=== PATIENT | male | born 1955 | race Two or more races ===

== ENCOUNTER 2017-05-06 10:01 | Emergency (ER) | payer OTHER ==
[2017-05-06 10:17] VITALS: BP 134/82
--- NOTE | 2017-05-06 10:19 | ER Document Report ---
HPI - HPI Patient complains to provider of: Gout flare Onset: Other - 1 month Quality of pain: Throbbing Pain Level: 4 Context: 61-year-old male with a history of gout has been out of his Uloric which prevented flares. He used to go to [facility] and his doctor changed he does not have a prescription. 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 It is not as bad as it was over . No fever or chills. Associated Symptoms: None Exacerbated by: Movement Relieved by: Denies - ROS ROS below otherwise negative: Yes Systems Reviewed and Negative: Yes All other systems reviewed and negative Past Medical History - General Information source: Patient - Social History Smoking Status: Never Smoker Frequency of alcohol use: None Drug Abuse: None Occupation: food selector Lives with: Family Family History: Reviewed & Not Pertinent - Medical History Notes: gout Musculoskeltal Medical History: Reports Hx Arthritis, Reports Hx Gout Past Surgical History: Reports: Hx Cholecystectomy, Hx Herniorrhaphy - umbilical , Hx Orthopedic Surgery. Denies: Hx Pacemaker - Immunizations Immunizations up to date: Yes Hx Diphtheria, Pertussis, Tetanus Vaccination: Yes Vertical Provider Document - CONSTITUTIONAL Agree With Documented VS: Yes Exam Limitations: No Limitations General Appearance: No Apparent Distress - INFECTION CONTROL TRAVEL OUTSIDE OF THE [place] IN LAST 30 DAYS: No - HEENT HEENT: Normocephalic - RESPIRATORY O2 Sat by Pulse Oximetry: 96 - MUSCULOSKELETAL/EXTREMETIES Musculoskeletal/Extremeties: Tender, Edema - warm bilateral ankle joints, left more than right. Course - Re-evaluation Re-evalutation: 05/06/17 11:27 Uric acid is normal so I will not be prescribing Uloric, he will f/u [facility] - Vital Signs Vital signs: Temp Pulse Resp BP Pulse Ox 98.0 F 64 16 134/82 H 96 05/06/17 10:15 05/06/17 10:15 05/06/17 10:15 05/06/17 10:15 05/06/17 10:15 Discharge - Discharge Clinical Impression: gout bilateral ankles Condition: Good Disposition: HOME, SELF-CARE Instructions: Anti-Inflammatory Medication ([facility]), Gout ([facility]), Gout Diet ([facility]) Additional Instructions: see your doctor at [facility] your uric acid is normal, the Uloric that you have had in the past is to lower the uric acid and yours is normal. to er if worse Prescriptions: Indomethacin [Indocin 50 Mg Capsule] 50 mg PO TIDP PRN #30 capsule PRN Reason: Forms: Return to Work
[2017-05-06] MEDS ORDERED: INDOMETHACIN 50 MG CAPSULE PO ONE (10:33)
== END 2017-05-06 11:47 | disposition home or self-care (01) ==
LOC: ER 10:01
DX: M10.9 Gout, unspecified (principal)
CPT/HCPCS: 99283; 36415; 84550; J3490

== ENCOUNTER 2017-07-01 09:30 | Emergency (ER) | payer OTHER ==
[2017-07-01 09:45] VITALS: BP 139/80
--- NOTE | 2017-07-01 10:14 | ER Document Report ---
HPI - HPI Patient complains to provider of: ankle pain Onset: Other - 4 days Onset/Duration: Persistent Quality of pain: Achy Pain Level: 5 Context: Patient presents complaining of left ankle pain for the past several months that has gradually been worsening over the past month that noticeably got worse 4 days ago. 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 Patient states that this is not managing his pain symptoms. 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 Associated Symptoms: Other - Left ankle pain. denies: Fever Exacerbated by: Standing, Movement, Walking Relieved by: Denies Similar symptoms previously: Yes Recently seen / treated by doctor: Yes - ROS ROS below otherwise negative: Yes Systems Reviewed and Negative: Yes All other systems reviewed and negative - CONSTITUTIONAL Constitutional: DENIES: Fever, Chills - MUSCULOSKELETAL Musculoskeletal: REPORTS: Extremity pain - left inner ankle, Swelling - DERM Skin Color: Normal Skin Problems: None Past Medical History - General Information source: Patient - Social History Smoking Status: Never Smoker Frequency of alcohol use: None Drug Abuse: None Occupation: [employer] Family History: Reviewed & Not Pertinent Patient has suicidal ideation: No Patient has homicidal ideation: No Pulmonary Medical History: Denies: Hx Tuberculosis Neurological Medical History: Denies: Hx Seizures Renal/ Medical History: Denies: Hx Peritoneal Dialysis Musculoskeltal Medical History: Reports Hx Arthritis, Reports Hx Gout Past Surgical History: Reports: Hx Cholecystectomy, Hx Herniorrhaphy - umbilical , Hx Orthopedic Surgery. Denies: Hx Pacemaker - Immunizations Immunizations up to date: Yes Hx Diphtheria, Pertussis, Tetanus Vaccination: Yes Vertical Provider Document - CONSTITUTIONAL Agree With Documented VS: Yes Exam Limitations: No Limitations General Appearance: WD/WN, No Apparent Distress - INFECTION CONTROL TRAVEL OUTSIDE OF THE [place] IN LAST 30 DAYS: No - HEENT HEENT: Atraumatic, Normocephalic - NECK Neck: Normal Inspection - RESPIRATORY Respiratory: Breath Sounds Normal, No Respiratory Distress O2 Sat by Pulse Oximetry: 98 - CARDIOVASCULAR Cardiovascular: Regular Rate, Regular Rhythm Pulses: Normal: Dorsalis pedis - BACK Back: Normal Inspection - MUSCULOSKELETAL/EXTREMETIES Musculoskeletal/Extremeties: MAEW, Tender - Tenderness to medial aspect of left ankle with 2+ edema, normal skin temperature overlying joint, Edema - NEURO Level of Consciousness: Awake, Alert, Appropriate Motor/Sensory: No Motor Deficit - DERM Integumentary: Warm, Dry, No Rash Course - Re-evaluation Re-evalutation: 07/01/17 10:12 Controlled substance database reviewed Patient states that he has crutches at home and does not need an additional pair at this time. Patient with symptoms consistent with gout flare. Patient encouraged to eat foods low in purine. Patient encouraged to follow-up with his planishing hammer operator for recheck - Vital Signs Vital signs: Temp Pulse Resp BP Pulse Ox 97.8 F 72 16 139/80 H 98 07/01/17 09:40 07/01/17 09:40 07/01/17 09:40 07/01/17 09:40 07/01/17 09:40 Discharge - Discharge Clinical Impression: Gout attack Qualifiers: Gout site: ankle Gout etiology: unspecified cause Laterality: left Qualified Code(s): M10.9 - Gout, unspecified Condition: Stable Disposition: HOME, SELF-CARE Instructions: Gout ([facility]), Gout Diet ([facility]), Oral Narcotic Medication ([facility]) Additional Instructions: Return immediately for any new or worsening symptoms Followup with your primary care provider, call tomorrow to make a followup appointment Follow-up with your planishing hammer operator for recheck, call today for follow-up appointment Use your crutches that you have at home to help with ambulation Prescriptions: Oxycodone HCl/Acetaminophen [Percocet 5-325 mg Tablet] 1 tab PO ASDIR PRN #15 tablet PRN Reason: Forms: Return to Work Referrals: CLARISSA OVALLE DPM [NO LOCAL MD] - Follow up tomorrow
== END 2017-07-01 10:15 | disposition home or self-care (01) ==
LOC: ER 09:30
DX: M10.9 Gout, unspecified (principal); M25.572 Pain in left ankle and joints of left foot
CPT/HCPCS: 99283

== ENCOUNTER 2017-11-06 16:19 | Emergency (ER) | payer OTHER ==
[2017-11-06 16:30] VITALS: BP 138/73
--- NOTE | 2017-11-06 16:39 | ER Document Report ---
ED Medical Screen (RME) - General Chief Complaint: Leg Pain Stated Complaint: POSSIBLE BLOOD CLOT Time Seen by Provider: 11/06/17 16:38 Notes: The patient is a 61-year-old male who presents with increased left leg swelling and pain over the past 2 days. He was diagnosed with an extensive left lower extremity DVT from his popliteal region up to his groin in outpatient radiology was sent to the ER for further evaluation. He had ankle surgery in [place] [facility] a few weeks ago and had a cast removed 2 days ago. Denies chest pain, shortness of breath or hemoptysis. PE: RRR. Lungs CTAB. No respiratory distress. I have greeted and performed a rapid initial assessment of this patient. A comprehensive ED assessment and evaluation of the patient, analysis of test results and completion of the medical decision making process will be conducted by additional ED providers. TRAVEL OUTSIDE OF THE U[place] IN LAST 30 DAYS: No - Related Data Allergies/Adverse Reactions: latex [Latex] Allergy (Unknown, Verified 11/06/17 16:29) Penicillins Allergy (Unknown, Verified 11/06/17 16:29) Past Medical History Pulmonary Medical History: Denies: Hx Tuberculosis Neurological Medical History: Denies: Hx Seizures Renal/ Medical History: Denies: Hx Peritoneal Dialysis Musculoskeltal Medical History: Reports Hx Arthritis, Reports Hx Gout Past Surgical History: Reports: Hx Cholecystectomy, Hx Herniorrhaphy - umbilical , Hx Orthopedic Surgery. Denies: Hx Pacemaker - Immunizations Immunizations up to date: Yes Hx Diphtheria, Pertussis, Tetanus Vaccination: Yes Physical Exam - Vital signs Vitals: Temp Pulse Resp BP Pulse Ox 98.4 F 84 16 138/73 H 94 11/06/17 16:29 11/06/17 16:29 11/06/17 16:29 11/06/17 16:29 11/06/17 16:29 Course - Vital Signs Vital signs: Temp Pulse Resp BP Pulse Ox 98.4 F 84 16 138/73 H 94 11/06/17 16:29 11/06/17 16:29 11/06/17 16:29 11/06/17 16:29 11/06/17 16:29 Doctor's Discharge - Discharge Referrals: YOVANY ZARAGOZA MD [Primary Care Provider] - Follow up as needed
[2017-11-06 16:56] LABS: ABSOLUTE BASOPHILS # (AUTO) 0.1 10^3/uL (0.0-0.2); ABSOLUTE EOSINOPHILS # (AUTO) 0.2 10^3/uL (0.0-0.6); ABSOLUTE LYMPHOCYTES (AUTO) 2.3 10^3/uL (0.5-4.7); ABSOLUTE MONOCYTES (AUTO) 0.8 10^3/uL (0.1-1.4); ABSOLUTE NEUT (AUTO) 3.4 10^3/uL (1.7-8.2); BASOPHILS % (AUTO) 1.1 % (0-2); HEMATOCRIT 40.6 % (37.9-51.0); LYMPHOCYTES % (AUTO) 34.2 % (13-45); MEAN CORPUSCULAR HEMOGLOBIN 30.6 pg (27.0-33.4); MEAN CORPUSCULAR HGB CONC 34.6 g/dL (32.0-36.0); MEAN CORPUSCULAR VOLUME 89 fl (80-97); MONOCYTES % (AUTO) 12.1 % (3-13); PLATELET COUNT 241 10^3/uL (150-450); RED BLOOD COUNT 4.59 10^6/uL (4.35-5.55); RED CELL DISTRIBUTION WIDTH 13.7 % (11.5-14.0); SEGMENTED NEUTROPHILS % (AUTO) 49.6 % (42-78); TOTAL CELLS COUNTED % (AUTO) 100 %; WHITE BLOOD COUNT 6.8 10^3/uL (4.0-10.5)
[2017-11-06 17:06] LABS: PROTHROMBIN TIME 12.6 SEC (11.4-15.4)
[2017-11-06 17:07] LABS: PARTIAL THROMBOPLASTIN TIME 29.5 SEC (23.5-35.8)
[2017-11-06 17:13] LABS: ALANINE AMINOTRANSFERASE 24 U/L (21-72); ALKALINE PHOSPHATASE 62 U/L (38-126); ANION GAP 10 (5-19); ASPARTATE AMINO TRANSFERASE 21 U/L (17-59); BILIRUBIN,DIRECT 0.3 mg/dL (0.0-0.4); BILIRUBIN,TOTAL 0.5 mg/dL (0.2-1.3); BLOOD UREA NITROGEN 16 mg/dL (7-20); CALCIUM 8.9 mg/dL (8.4-10.2); CARBON DIOXIDE 27 mmol/L (22-30); CHLORIDE 104 mmol/L (98-107); GLUCOSE 91 mg/dL (75-110); POTASSIUM 4.7 mmol/L (3.6-5.0); TOTAL PROTEIN 7.6 g/dL (6.3-8.2)
[2017-11-06] MEDS ORDERED: APIXABAN 5 MG TABLET PO ONE (17:56)
--- NOTE | 2017-11-06 18:02 | ER Document Report ---
ED Extremity Problem, Lower - General Chief Complaint: Leg Pain Stated Complaint: POSSIBLE BLOOD CLOT Time Seen by Provider: 11/06/17 16:38 Mode of Arrival: Ambulatory Information source: Patient Notes: Patient presents complaining of left lower extremity swelling and pain for the past 2 days. Patient recently had ankle surgery on September 15 and had a cast removed 2 days ago. Patient states that after having the cast removed he developed blisters to the foot and ankle. Patient did see his orthopedic surgeon today about the swelling and blisters to the foot. His orthopedic surgeon ordered an outpatient Doppler which did test positive for extensive DVT to the left lower extremity. Patient denies any chest pain or shortness of breath. Patient denies any hemoptysis. She denies any previous history of clotting disorders. TRAVEL OUTSIDE OF THE [place] IN LAST 30 DAYS: No - HPI Patient complains to provider of: Pain, Swelling Location: Leg Occurred: Other - 2 days Onset/Duration: Persistent Quality of pain: Achy Pain Level: 2 Context: Recent immobilization, Recent surgery Recent injury: No Associated symptoms: denies: Chest pain, Chills, Short of breath, Unable to bear weight Exacerbated by: Nothing Relieved by: Nothing - Related Data Allergies/Adverse Reactions: latex [Latex] Allergy (Unknown, Verified 11/06/17 16:29) Penicillins Allergy (Unknown, Verified 11/06/17 16:29) Past Medical History - General Information source: Patient - Social History Smoking Status: Never Smoker Chew tobacco use (# tins/day): No Frequency of alcohol use: None Drug Abuse: None Lives with: Family Family History: Reviewed & Not Pertinent Patient has suicidal ideation: No Patient has homicidal ideation: No Pulmonary Medical History: Denies: Hx Tuberculosis Neurological Medical History: Denies: Hx Seizures Renal/ Medical History: Denies: Hx Peritoneal Dialysis Musculoskeltal Medical History: Reports Hx Arthritis, Reports Hx Gout Past Surgical History: Reports: Hx Abdominal Surgery - hernia, Hx Cholecystectomy, Hx Herniorrhaphy - umbilical, Hx Orthopedic Surgery. Denies: Hx Pacemaker - Immunizations Immunizations up to date: Yes Hx Diphtheria, Pertussis, Tetanus Vaccination: Yes Review of Systems - Review of Systems Constitutional: No symptoms reported. denies: Fever, Recent illness EENT: No symptoms reported Cardiovascular: No symptoms reported. denies: Chest pain, Palpitations, Dizziness Respiratory: No symptoms reported. denies: Cough, Hemoptysis, Short of breath Gastrointestinal: No symptoms reported Genitourinary: No symptoms reported Male Genitourinary: No symptoms reported Musculoskeletal: Leg swelling. denies: Back pain Skin: Other - Mild erythema in blistering to left foot Hematologic/Lymphatic: No symptoms reported Neurological/Psychological: No symptoms reported Physical Exam - Vital signs Vitals: Temp Pulse Resp BP Pulse Ox 98.4 F 84 16 138/73 H 94 11/06/17 16:29 11/06/17 16:29 11/06/17 16:29 11/06/17 16:29 11/06/17 16:29 - General General appearance: Appears well, Alert In distress: None - HEENT Head: Normocephalic, Atraumatic Eyes: Normal Conjunctiva: Normal Nasal: Normal Mouth/Lips: Normal Mucous membranes: Normal Pharynx: Normal Neck: Normal - Respiratory Respiratory status: No respiratory distress Chest status: Nontender Breath sounds: Normal. No: Rales, Rhonchi, Stridor, Wheezing Chest palpation: Normal - Cardiovascular Rhythm: Regular Heart sounds: S1 appreciated, S2 appreciated Murmur: No - Abdominal Inspection: Normal Distension: No distension - Back Back: Normal, Nontender - Extremities General upper extremity: Normal inspection, Normal strength General lower extremity: Tender - Mild tenderness to medial aspect of left knee and distal third of left medial thigh area, Edema - 2-3+ edema to left lower extremity and left foot Thigh: Tender - Medial aspect of left thigh, Other Knee: Normal Calf: Other - 2-3+ edema to left lower extremity Ankle: Tender - Left ankle, Edema Foot: Tender, Edema - Neurological Neuro grossly intact: Yes Cognition: Normal Radames Coma Scale Eye Opening: Spontaneous Girdler Coma Scale Verbal: Oriented Radames Coma Scale Motor: Obeys Commands Girdler Coma Scale Total: 15 - Psychological Associated symptoms: Normal affect, Normal mood - Skin Skin Temperature: Warm Skin Moisture: Dry Skin Color: Erythema - Mild erythema left foot with scattered blisters Course - Re-evaluation Re-evalutation: 11/06/17 17:[address] Talley regarding patient presentation. Discussed patient's diagnostic test results including his Doppler study. Discussed fact that patient has extensive clot formation from the popliteal vein through the proximal femoral vein, as well as thrombus in the greater saphenous vein throughout. Dr. Talley advised that patient is to be nonambulatory to the affected extremity due to his recent surgery. Dr. Talley does not feel that patient meets admission criteria and advises outpatient follow-up and treatment with anticoagulants such as Eliquis or Xarelto. Consulted with Dr. Fuentes who is agreeable with this plan of care although advises close outpatient follow-up. 11/06/17 17:59 pt without any vascular compromise, no phlegmasia cerulean monroe, or phlegmasia alba Dolans. No concern for cellulitis given patient presentation. Patient with areas of erythema that look as though his walking boot may have rubbed on his foot causing irritation. Patient with scattered bullous lesions that are weeping in areas. Patient states that his orthopedic surgeon felt that this was just a rare complication given the type of procedure that he had. - Vital Signs Vital signs: Temp Pulse Resp BP Pulse Ox 98.4 F 84 16 138/73 H 94 11/06/17 16:29 11/06/17 16:29 11/06/17 16:29 11/06/17 16:29 11/06/17 16:29 - Laboratory Result Diagrams: 11/06/17 16:46 11/06/17 16:46 Laboratory results interpreted by me: 11/06/17 17:59 Labs- Entire Visit 11/06/17 11/06/17 11/06/17 16:46 16:46 16:46 WBC 6.8 RBC 4.59 Hgb 14.0 Hct 40.6 MCV 89 MCH 30.6 MCHC 34.6 RDW 13.7 Plt Count 241 Seg Neutrophils % 49.6 Lymphocytes % 34.2 Monocytes % 12.1 Eosinophils % 3.0 Basophils % 1.1 Absolute Neutrophils 3.4 Absolute Lymphocytes 2.3 Absolute Monocytes 0.8 Absolute Eosinophils 0.2 Absolute Basophils 0.1 PT 12.6 INR 0.90 APTT 29.5 Sodium 141.0 Potassium 4.7 Chloride 104 Carbon Dioxide 27 Anion Gap 10 BUN 16 Creatinine 0.83 Est GFR ( Amer) > 60 Est GFR (Non-Af Amer) > 60 Glucose 91 Calcium 8.9 Total Bilirubin 0.5 Direct Bilirubin 0.3 Neonat Total Bilirubin Not Reportable Neonat Direct Bilirubin Not Reportable Neonat Indirect Bili Not Reportable AST 21 ALT 24 Alkaline Phosphatase 62 Total Protein 7.6 Albumin 4.0 - Diagnostic Test Radiology reviewed: Reports reviewed Discharge - Discharge Clinical Impression: DVT (deep venous thrombosis) Qualifiers: DVT location: lower extremity Affected thrombotic vein of extremity: unspecified vein of extremity Chronicity: acute Laterality: left Qualified Code( s): I82.402 - Acute embolism and thrombosis of unspecified deep veins of left lower extremity Condition: Stable Disposition: HOME, SELF-CARE Instructions: DVT Outpatient Treatment ([facility]) Additional Instructions: Return immediately for any new or worsening symptoms: Return immediately for any difficulty breathing, chest pain, abnormal bleeding or bruising. Followup with your primary care provider, call tomorrow to make a followup appointment Follow-up with your orthopedic surgeon as planned Follow-up with Dr. Mensah, [facility], for further evaluation, call tomorrow for appointment Your receiving a prescription for only a month's worth of medication. It is likely that you will need to be on this medication for longer than 1 month. Your orthopedic surgeon or the [facility] can write additional prescriptions as needed. Prescriptions: Apixaban [Eliquis] 5 mg PO Q12 #70 tablet Referrals: YOVANY ZARAGOZA MD [NO LOCAL MD] - 11/11/17 LUCIA MENSAH MD [ACTIVE STAFF] - Follow up tomorrow
== END 2017-11-06 18:25 | disposition home or self-care (01) ==
LOC: ER 16:19
DX: I82.402 Acute embolism and thrombosis of unspecified deep veins of left lower extremity (principal); M79.605 Pain in left leg; M79.89 Other specified soft tissue disorders; Z98.890 Other specified postprocedural states
CPT/HCPCS: 36415; 80053; 85025; 85610; 85730; 99283

== ENCOUNTER → 2017-11-06 | Outpatient (CLI) | payer OTHER ==
--- NOTE | 2017-11-06 16:23 | RADIOLOGY REPORT (SQ) ---
EXAM DESCRIPTION: VENOUS UNILATERAL LOWER COMPLETED DATE/TIME: 11/06/2017 4:13 pm REASON FOR STUDY: PAIN SWELLING COMPARISON: None. TECHNIQUE: Dynamic and static mae scale and color images acquired of the left leg venous system. Se lected spectral images acquired with additional compression and augmentation maneuvers. The contralat eral common femoral vein and saphenofemoral junction were also imaged. Images stored on PACS. LIMITATIONS: None. FINDINGS: There is extensive thrombus from the popliteal vein through the proximal femoral vein. Th ere is thrombus in the greater saphenous vein throughout. CONTRALATERAL COMMON FEMORAL VEIN AND SAPHENOFEMORAL JUNCTION: Normal phasicity, compression and augmentation. No visualized echogenic material on mae scale. No de fects on color images. IMPRESSION: Extensive DVT in the left lower extremity. SVT. TECHNICAL DOCUMENTATION: JOB ID: [id number] [employer]- All Rights Reserved Reading location - IP/workstation name: [email or web address]
== END ==
LOC: SP 15:22
PROVIDERS: ATTEND Physician Assistant
DX: M79.605 Pain in left leg (principal); M79.89 Other specified soft tissue disorders
CPT/HCPCS: 93971

== ENCOUNTER 2018-02-15 17:45 | Emergency (ER) | payer SELFPAY ==
[2018-02-15] MEDS ORDERED: TETRACAINE HCL 0.5% OPH SOLN 4 ML OS ONE (20:14)
--- NOTE | 2018-02-15 20:15 | ER Document Report ---
HPI - HPI Patient complains to provider of: Eyelid pain Onset: Other - 2 days Onset/Duration: Persistent Quality of pain: Achy Pain Level: 4 Context: Patient presents complaining of left upper eyelid pain with swelling for the past 2 days. Patient states that he has noted some mild drainage to the left eye. Patient wears glasses and denies any contact lens use. Patient denies any trauma to the eye. Associated Symptoms: Other - Left upper eyelid pain and swelling Exacerbated by: Denies Relieved by: Denies Similar symptoms previously: No Recently seen / treated by doctor: No - ROS ROS below otherwise negative: Yes Systems Reviewed and Negative: Yes All other systems reviewed and negative - CONSTITUTIONAL Constitutional: DENIES: Fever - EENT EENT: REPORTS: Eye problems - left eye lid swollen - NEURO Neurology: REPORTS: Headache - for last hr or so - GASTROINTESTINAL Gastrointestinal: DENIES: Nausea, Patient vomiting - DERM Skin Color: Normal Skin Problems: None Past Medical History - General Information source: Patient - Social History Smoking Status: Never Smoker Frequency of alcohol use: None Drug Abuse: None Occupation: Foodservice Family History: Reviewed & Not Pertinent Patient has suicidal ideation: No Patient has homicidal ideation: No - Past Medical History Cardiac Medical History: Reports: Hx DVT, Hx Heart Murmur Pulmonary Medical History: Denies: Hx Tuberculosis Neurological Medical History: Denies: Hx Seizures Renal/ Medical History: Denies: Hx Peritoneal Dialysis Musculoskeletal Medical History: Reports Hx Arthritis, Reports Hx Gout Past Surgical History: Reports: Hx Abdominal Surgery - hernia, Hx Cholecystectomy, Hx Herniorrhaphy - umbilical, Hx Orthopedic Surgery - left ankle surg. Denies: Hx Pacemaker - Immunizations Immunizations up to date: Yes Hx Diphtheria, Pertussis, Tetanus Vaccination: Yes Vertical Provider Document - CONSTITUTIONAL Agree With Documented VS: Yes Exam Limitations: No Limitations General Appearance: WD/WN, No Apparent Distress - INFECTION CONTROL TRAVEL OUTSIDE OF THE [place] IN LAST 30 DAYS: No - HEENT HEENT: Atraumatic, Normocephalic Notes: Left eyelid swelling and inflammation with mild crusting along eyelid margin. No corneal abrasion, foreign body, ulcer or dendrite. Extraocular movements intact. - NECK Neck: Normal Inspection - RESPIRATORY Respiratory: No Respiratory Distress - NEURO Level of Consciousness: Awake, Alert, Appropriate Motor/Sensory: No Motor Deficit - DERM Integumentary: Warm Course - Vital Signs Vital signs: Temp Pulse Resp BP Pulse Ox 97.7 F 71 18 142/69 H 96 02/15/18 17:54 02/15/18 17:54 02/15/18 17:54 02/15/18 17:54 02/15/18 17:54 Discharge - Discharge Clinical Impression: Pain of left eyelid Blepharitis of left eye Qualifiers: Blepharitis type: unspecified type Eyelid: upper Qualified Code(s): H01.004 - Unspecified blepharitis left upper eyelid Condition: Stable Disposition: HOME, SELF-CARE Instructions: Antibiotic Therapy ([facility]) Additional Instructions: Return immediately for any new or worsening symptoms Followup with your opthamologist, call tomorrow to make a followup appointment Apply warm compresses to the left eyelid for comfort. Instill 1 inch ribbon of erythromycin ointment to left eye 4 times a day for the next 5 days. Prescriptions: Cephalexin Monohydrate [Keflex 500 mg Capsule] 500 mg PO Q6H 5 Days capsule Forms: Return to Work Referrals: JESSE ACEVEDO MD [Primary Care Provider] - Follow up as needed
[2018-02-15] MEDS ORDERED: POLYMYXIN B SULFATE/TMP OPH SOLN (10 ML/ER DISP) OS PRN (20:54)
[2018-02-15] MEDS ORDERED: CEPHALEXIN 500 MG CAPSULE PO ONE (20:54)
[2018-02-15] MEDS ORDERED: ERYTHROMYCIN 0.5% OPH OINTMENT 3.5 GM (ER DISP) OS PRN (21:50)
[2018-02-15] MEDS ORDERED: ERYTHROMYCIN 0.5% OPH OINT 1 GM UNIT DOSE ONE (21:56)
[2018-02-15] MEDS ORDERED: ERYTHROMYCIN 0.5% OPH OINTMENT 3.5 GM TUBE OS SCH (22:00)
[2018-02-15 23:34] VITALS: BP 129/82
== END 2018-02-15 22:10 | disposition home or self-care (01) ==
LOC: ER 17:45
DX: H01.004 Unspecified blepharitis left upper eyelid (principal); R51 Headache
CPT/HCPCS: 99283; J3490

== ENCOUNTER 2018-04-06 16:53 | Emergency (ER) | payer SELFPAY ==
[2018-04-06] MEDS ORDERED: NAPROXEN 250 MG TABLET PO ONE (18:35)
[2018-04-06] MEDS ORDERED: ONDANSETRON 4 MG TAB.RAPDIS PO ONE (18:35)
--- NOTE | 2018-04-06 18:35 | ER Document Report ---
ED General - General Chief Complaint: Flu Symptoms Stated Complaint: NAUSEA,HEADACHE,COUGH,BODY ACHES Time Seen by Provider: 04/06/18 18:19 Notes: Patient is a 62-year-old male that presents to the emergency department for chief complaint of body aches, nausea, cough. Patient states that he was exposed to a coworker, that had influenza, he started having symptoms over this weekend, that became worse on Friday, particular with body aches, dry cough, and complaining of sore throat. He denies feeling short of breath or having any chest pain, lightheadedness, or dizziness. He does have a mild holocephalic headache he describes as a 2 out of 10 at this time, that is associated with the rest of his symptoms. Denies having any vomiting, but he has had decreased appetite and nausea. Past Medical History: Gout Past Surgical History: Ankle surgery Social History: Denies tobacco, alcohol or drug use Family History: Reviewed and noncontributory for presenting illness Allergies: Reviewed, see documented allergy list. REVIEW OF SYSTEMS: Other than noted above, the 12 point review of systems was reviewed with the patient and were negative, all pertinent findings are included in the HPI. PHYSICAL EXAMINATION: Vital signs reviewed, nursing noted reviewed. GENERAL: Well-appearing, well-nourished and in no acute distress. HEAD: Atraumatic, normocephalic. EYES: Eyes appear normal, extraocular movements intact, sclera anicteric, conjunctiva are normal. ENT: nares patent, oropharynx clear without exudates. Moist mucous membranes. NECK: Normal range of motion, supple without lymphadenopathy LUNGS: Breath sounds clear to auscultation bilaterally and equal. No wheezes rales or rhonchi. Dry cough noted on exam HEART: Regular rate and rhythm without murmurs ABDOMEN: Soft, nontender, normoactive bowel sounds. No rebound, guarding, or rigidity. No masses appreciated. EXTREMITIES: Nontender, good range of motion, no pitting or edema. NEUROLOGICAL: No focal neurological deficits. Moves all extremities spontaneously Motor and sensory grossly intact on exam. PSYCH: Normal mood, normal affect. SKIN: Warm, Dry, normal turgor, no rashes or lesions noted on exposed skin TRAVEL OUTSIDE OF THE [place] IN LAST 30 DAYS: No - Related Data Allergies/Adverse Reactions: latex [Latex] Allergy (Unknown, Verified 02/15/18 17:46) Penicillins Allergy (Unknown, Verified 02/15/18 17:46) Past Medical History - Social History Smoking Status: Never Smoker Chew tobacco use (# tins/day): No Frequency of alcohol use: Occasional Drug Abuse: None Family History: Reviewed & Not Pertinent Patient has suicidal ideation: No Patient has homicidal ideation: No - Past Medical History Cardiac Medical History: Reports: Hx DVT, Hx Heart Murmur Pulmonary Medical History: Denies: Hx Tuberculosis Neurological Medical History: Denies: Hx Seizures Renal/ Medical History: Denies: Hx Peritoneal Dialysis Musculoskeletal Medical History: Reports Hx Arthritis, Reports Hx Gout Past Surgical History: Reports: Hx Abdominal Surgery - hernia, Hx Cholecystectomy, Hx Herniorrhaphy - umbilical, Hx Orthopedic Surgery - left ankle surg. Denies: Hx Pacemaker - Immunizations Immunizations up to date: Yes Hx Diphtheria, Pertussis, Tetanus Vaccination: Yes Physical Exam - Vital signs Vitals: Temp Pulse Resp BP Pulse Ox 99.5 F 96 14 148/79 H 98 04/06/18 17:08 04/06/18 17:08 04/06/18 17:08 04/06/18 17:08 04/06/18 17:08 Course - Re-evaluation Re-evalutation: Patient seen and examined vital signs reviewed. Laboratory data and imaging were ordered as appropriate for the patient's presenting symptoms and complaint, with consideration of any critical or life threatening conditions that may be associated with their obtained history and exam as noted above. Patient was treated with Zofran, and naproxen Results were reviewed when available and demonstrated negative chest x-ray, no consolidative pneumonia The patient was re-evaluated and was stable, not hypoxic Evaluation was most consistent with influenza, will discharge home on Tamiflu, advised him on potential side effects of nausea, vomiting diarrhea, also will be given a prescription for Zofran and naproxen. Results were discussed with the patient at this point, after careful consideration I feel that that patient can be discharged from the emergency department, the patient was educated treatments and reasons to return to the emergency department based on their presumed diagnosis as noted above, they were advised to followup with a primary care physician in 2-3 days. Patient was agreeable to plan of care. *Note is created using voice recognition software and may contain spelling, syntax or grammatical errors. Chest X-Ray 04/06/18 18:35 IMPRESSION: NO ACUTE RADIOGRAPHIC FINDING IN THE CHEST. - Vital Signs Vital signs: Temp Pulse Resp BP Pulse Ox 99.5 F 96 14 148/79 H 98 04/06/18 17:08 04/06/18 17:08 04/06/18 17:08 04/06/18 17:08 04/06/18 17:08 Discharge - Discharge Clinical Impression: Influenza Condition: Stable Disposition: HOME, SELF-CARE Instructions: Influenza ([facility]) Additional Instructions: Please return to the emergency department if you have any worsening, or concern of your symptoms. Please return to the emergency department if you develop chest pain, difficulty breathing, severe abdominal pain, or ongoing vomiting. Please follow-up with your primary care physician in 2-3 days and any other recommended physicians. If prescribed, take all medications as directed. If you have any questions or concerns do not hesitate to return the emergency department for evaluation. Prescriptions: Naproxen [Naprosyn] 500 mg PO BID PRN #30 tablet PRN Reason: body aches Ondansetron [Zofran Odt 4 mg Tablet] 1 tab PO Q8H PRN #15 tab.rapdis PRN Reason: For Nausea/Vomiting Oseltamivir Phosphate [Tamiflu 75 mg Capsule] 75 mg PO BID #10 capsule Forms: Return to Work Referrals: JESSE ACEVEDO MD [Primary Care Provider] - Follow up in 3-5 days
--- NOTE | 2018-04-06 19:29 | RADIOLOGY REPORT (SQ) ---
EXAM DESCRIPTION: CHEST 2 VIEWS COMPLETED DATE/TIME: 04/06/2018 7:18 pm REASON FOR STUDY: cough COMPARISON: June 2011 EXAM PARAMETERS: NUMBER OF VIEWS: two views TECHNIQUE: Digital Frontal and Lateral radiographic views of the chest acquired. RADIATION DOSE: NA LIMITATIONS: none FINDINGS: LUNGS AND PLEURA: No opacities, masses or pneumothorax. No pleural effusion. MEDIASTINUM AND HILAR STRUCTURES: No masses or contour abnormalities. HEART AND VASCULAR STRUCTURES: Heart normal size. No evidence for failure. BONES: No acute findings. HARDWARE: None in the chest. OTHER: No other significant finding. IMPRESSION: NO ACUTE RADIOGRAPHIC FINDING IN THE CHEST. TECHNICAL DOCUMENTATION: JOB ID: [id number] [employer]- All Rights Reserved Reading location - IP/workstation name: [email or web address]
[2018-04-06 20:00] VITALS: BP 132/91
== END 2018-04-06 19:55 | disposition home or self-care (01) ==
LOC: ER 16:53
DX: J11.1 Influenza due to unidentified influenza virus with other respiratory manifestations (principal); R11.0 Nausea; R51 Headache; R05 Cough; M79.10 Myalgia, unspecified site
CPT/HCPCS: 99283; 71046; S0119

== ENCOUNTER 2018-09-07 13:15 | Emergency (ER) | payer SELFPAY ==
--- NOTE | 2018-09-07 13:40 | ER Document Report ---
ED Medical Screen (RME) - General Chief Complaint: Leg Pain Stated Complaint: LEFT LEG PAIN Time Seen by Provider: 09/07/18 13:29 Primary Care Provider: JESSE ACEVEDO MD [Primary Care Provider] - Follow up as needed Mode of Arrival: Ambulatory Information source: Patient Notes: Patient presents complaining of pain to the left popliteal area that started 4 days ago. Patient states he has had a previous DVT in this leg after having orthopedic surgery and was taken off of blood thinners about 6 months ago. Patient denies any injury to the leg. Patient also complains of some erythema to the left foot and ankle which is new for him. Patient also complains of a right upper thoracic back pain that started yesterday. Patient denies any cough or cold symptoms. Patient without any dyspnea. I have greeted and performed a rapid initial assessment of this patient. A comprehensive ED assessment and evaluation of the patient, analysis of test results and completion of the medical decision making process will be conducted by additional ED providers. TRAVEL OUTSIDE OF THE [place] IN LAST 30 DAYS: No - Related Data Allergies/Adverse Reactions: latex [Latex] Allergy (Unknown, Verified 09/07/18 13:16) Penicillins Allergy (Unknown, Verified 09/07/18 13:16) Past Medical History - Social History Chew tobacco use (# tins/day): No Frequency of alcohol use: None Drug Abuse: None - Past Medical History Cardiac Medical History: Reports: Hx DVT, Hx Heart Murmur Pulmonary Medical History: Denies: Hx Tuberculosis Neurological Medical History: Denies: Hx Seizures Renal/ Medical History: Denies: Hx Peritoneal Dialysis Musculoskeltal Medical History: Reports Hx Arthritis, Reports Hx Gout Past Surgical History: Reports: Hx Abdominal Surgery - hernia, Hx Cholecystectomy, Hx Herniorrhaphy - umbilical, Hx Orthopedic Surgery - left ankle surg. Denies: Hx Pacemaker - Immunizations Immunizations up to date: Yes Hx Diphtheria, Pertussis, Tetanus Vaccination: Yes Physical Exam - Extremities General lower extremity: Tender - Left leg tenderness to popliteal area Doctor's Discharge - Discharge Referrals: JESSE ACEVEDO MD [Primary Care Provider] - Follow up as needed
[2018-09-07 14:21] LABS: ABSOLUTE BASOPHILS # (AUTO) 0.1 10^3/uL (0.0-0.2); ABSOLUTE EOSINOPHILS # (AUTO) 0.2 10^3/uL (0.0-0.6); ABSOLUTE LYMPHOCYTES (AUTO) 2.4 10^3/uL (0.5-4.7); ABSOLUTE MONOCYTES (AUTO) 0.7 10^3/uL (0.1-1.4); ABSOLUTE NEUT (AUTO) 2.9 10^3/uL (1.7-8.2); BASOPHILS % (AUTO) 1.2 % (0-2); EOSINOPHILS % (AUTO) 2.9 % (0-6); HEMATOCRIT 41.2 % (37.9-51.0); HEMOGLOBIN 14.4 g/dL (13.5-17.0); LYMPHOCYTES % (AUTO) 38.5 % (13-45); MEAN CORPUSCULAR HEMOGLOBIN 30.9 pg (27.0-33.4); MEAN CORPUSCULAR VOLUME 88 fl (80-97); MONOCYTES % (AUTO) 11.9 % (3-13); PLATELET COUNT 172 10^3/uL (150-450); RED BLOOD COUNT 4.67 10^6/uL (4.35-5.55); RED CELL DISTRIBUTION WIDTH 13.5 % (11.5-14.0); SEGMENTED NEUTROPHILS % (AUTO) 45.5 % (42-78); TOTAL CELLS COUNTED % (AUTO) 100 %; WHITE BLOOD COUNT 6.3 10^3/uL (4.0-10.5)
--- NOTE | 2018-09-07 14:21 | ER Document Report ---
ED General - General Chief Complaint: Leg Pain Stated Complaint: LEFT LEG PAIN Time Seen by Provider: 09/07/18 13:29 Primary Care Provider: JESSE ACEVEDO MD [Primary Care Provider] - Follow up as needed Mode of Arrival: Ambulatory TRAVEL OUTSIDE OF THE [place] IN LAST 30 DAYS: No - HPI Notes: Pt is a well-appearing 62-year-old male who presents with a 2-week history of progressively worsening ankle swelling and pain. Patient reports his pain has worsened over the past 4-5 days significantly. Pain is exacerbated by standing for long periods of time, direct palpation to the medial aspect of the posterior knee. Describes the pain as aching and constant, but relieved with rest. Past medical history is significant for a DVT by surgery in August 2017. Pt reports he had ankle surgery and a week later he developed a DVT in his left leg in the same area where he is experiencing pain today. He subsequently put on Eliquis for 6 months however patient could not afford the medication and only reports he took it for 4 months. Patient now only takes a daily aspirin 325mg PO as a substitute for his daily Eliquis. Pt states that he normally has swelling in the left leg > Rt, and can be worse than it is today on a normal basis. Medical history also significant significant for gout, rheumatic fever, heart murmur. Denies any recent travel, trauma, surgery, headache, fever, head injury, neck pain, changes in vision/speech/mentation/hearing, URI, sore throat, chest pain, palpitations, syncope, cough, shortness of breath, wheeze, dyspnea, abdominal pain, nausea/vomiting/diarrhea, urinary retention, dysuria, hematuria, loss of control of bowel or bladder, numbness/tingling, saddle anesthesia, or rash. - Related Data Allergies/Adverse Reactions: latex [Latex] Allergy (Unknown, Verified 09/07/18 13:16) Penicillins Allergy (Unknown, Verified 09/07/18 13:16) Past Medical History - General Information source: Patient - Social History Smoking Status: Never Smoker Chew tobacco use (# tins/day): No Frequency of alcohol use: None Drug Abuse: None Family History: Reviewed & Not Pertinent Patient has suicidal ideation: No Patient has homicidal ideation: No - Past Medical History Cardiac Medical History: Reports: Hx DVT, Hx Heart Murmur Pulmonary Medical History: Denies: Hx Tuberculosis Neurological Medical History: Denies: Hx Seizures Renal/ Medical History: Denies: Hx Peritoneal Dialysis Musculoskeletal Medical History: Reports Hx Arthritis, Reports Hx Gout Past Surgical History: Reports: Hx Abdominal Surgery - hernia, Hx Cholecystectomy, Hx Herniorrhaphy - umbilical, Hx Orthopedic Surgery - left ankle surg. Denies: Hx Pacemaker - Immunizations Immunizations up to date: Yes Hx Diphtheria, Pertussis, Tetanus Vaccination: Yes Review of Systems - Review of Systems -: Yes All other systems reviewed and negative Physical Exam - Notes Notes: PHYSICAL EXAMINATION: GENERAL: Well-appearing, well-nourished and in no acute distress. LUNGS: Breath sounds clear to auscultation bilaterally and equal. No wheezes rales or rhonchi. HEART: Regular rate and rhythm without murmurs, rubs, gallops. Musculoskeletal: FROM to passive/active. Strength 5+/5. Negative Sisi's sign. + TTP of medial proximal popliteal area. Extremities: No cyanosis, clubbing. +1 pitting LLE edema. Trace swelling in RLE. + Hyperpigmentation along medial aspect of plantar foot. Peripheral pulses 1+. Capillary refill less than 3 seconds. No excessive warmth, ecchymosis, or deformity. No bony tenderness. NEUROLOGICAL: Normal speech, normal gait. Normal sensory, motor exams PSYCH: Normal mood, normal affect. SKIN: Warm, Dry, normal turgor, no rashes or lesions noted. Course - Re-evaluation Re-evalutation: 09/07/18 15:[address] Amin. Pt was found to have a nonobstructive DVT in the left popliteal area, ?acute vs chronic. We will obtain a CTA chest and speak with social work. 09/07/18 16:32 Patient is an afebrile, well-hydrated, 62-year-old male who presents emergency department the subacute left femoral DVT. Vitals are acceptable without significant tachycardia, tachypnea, or hypoxia. PE is otherwise unremarkable. There is no obvious neurovascular, otherwise, obvious tendon/leg rupture, obvious fracture/dislocation, septic joint. S CT and lab results. CTA of the chest does not show any PE. Venous Doppler does show a nonobstructive left femoral DVT. Social work, Mandeep, has an [facility] 4[facility] and will be placed on a Rx parveen plan so he can afford his medicine. First dose of Eliquis will be given here in the emergency department. Patient will be given a coupon for 4 tablets of Eliquis 5 mg total for $33. No further labs or imaging warranted at this time. I did review with Dr. Amin who is in agreement with dispo/plan. Low suspicion for any ACS, PE, pneumothorax, pericarditis, dissection, respiratory compromise, severe dehydration, sepsis, meningitis, or other systemic emergent condition at this time. Patient is aware that this condition can change from initial presentation and he needs to monitor symptoms closely and seek medical attention for any acute changes. He does not have any chest pain, shortness of breath, or dyspnea. Recommend conservative measures for symptoms. Recheck with your PCM in 3-5 days. Return to the ED with any worsening/concerning symptoms otherwise as reviewed in discharge. Patient is in agreement. - Laboratory Result Diagrams: 09/07/18 13:58 09/07/18 13:58 Laboratory results interpreted by me: 09/07/18 13:58 BUN 21 H Discharge - Discharge Clinical Impression: subacute DVT left femoral vein Left femoral vein DVT Qualifiers: Chronicity: unspecified Qualified Code(s): I82.412 - Acute embolism and thrombosis of left femoral vein Condition: Stable Disposition: HOME, SELF-CARE Instructions: DVT Outpatient Treatment ([facility]) Additional Instructions: You are being started on Eliquis for anticoagulation for your deep vein thrombosis to the left leg. It is very important that you take this medicine as you can pass a piece of the clot to other parts of your body that could result in . It is very imperative that you follow-up tomorrow afternoon as scheduled. Return to the ED for any concerning or worsening symptoms as needed. Maintain adequate fluid and food intake Take home medications as directed healthy diet Monitor blood pressure daily and keep a log Monitor symptoms for any acute changes Recheck with the clinic tomorrow as scheduled Consider a follow-up with cardiology Return to the ED with any worsening symptoms and/or development of fever, headache, chest pain, palpitations, syncope, shortness of breath, trouble breathing, abdominal pain, n/v/d, blood in stool/urine, loss of control of bowel/bladder, urinary retention, muscle weakness/paralysis, numbness/tingling, or other worsening symptoms that are concerning to you. Prescriptions: Apixaban [Eliquis 5 mg Tablet] 10 mg PO BID #4 tablet Forms: Elevated Blood Pressure Referrals: [facility] [Provider Group] - Follow up tomorrow
[2018-09-07 14:45] LABS: ALANINE AMINOTRANSFERASE 33 U/L (21-72); ALBUMIN 3.9 g/dL (3.5-5.0); ALKALINE PHOSPHATASE 54 U/L (38-126); ANION GAP 6 (5-19); ASPARTATE AMINO TRANSFERASE 28 U/L (17-59); BILIRUBIN,DIRECT 0.2 mg/dL (0.0-0.4); BILIRUBIN,TOTAL 0.6 mg/dL (0.2-1.3); BLOOD UREA NITROGEN 21 mg/dL (7-20); CALCIUM 9.5 mg/dL (8.4-10.2); CARBON DIOXIDE 25 mmol/L (22-30); CHLORIDE 106 mmol/L (98-107); GLUCOSE 80 mg/dL (75-110); POTASSIUM 4.4 mmol/L (3.6-5.0); SODIUM 137.1 mmol/L (137-145); TOTAL PROTEIN 6.9 g/dL (6.3-8.2)
--- NOTE | 2018-09-07 15:06 | RADIOLOGY REPORT (SQ) ---
EXAM DESCRIPTION: CHEST 2 VIEWS COMPLETED DATE/TIME: 09/07/2018 2:55 pm REASON FOR STUDY: R thoracic back pain COMPARISON: Two-view chest 04/06/2018 EXAM PARAMETERS: NUMBER OF VIEWS: two views TECHNIQUE: Digital Frontal and Lateral radiographic views of the chest acquired. RADIATION DOSE: NA LIMITATIONS: none FINDINGS: LUNGS AND PLEURA: No opacities, masses or pneumothorax. No pleural effusion. MEDIASTINUM AND HILAR STRUCTURES: No masses or contour abnormalities. HEART AND VASCULAR STRUCTURES: Heart normal size. No evidence for failure. BONES: No acute findings. HARDWARE: None in the chest. OTHER: No other significant finding. IMPRESSION: NO ACUTE RADIOGRAPHIC FINDING IN THE CHEST. TECHNICAL DOCUMENTATION: JOB ID: [id number] [employer]- All Rights Reserved Reading location - IP/workstation name: [email or web address]
[2018-09-07 15:15] LABS: INTERNATIONAL RATION (INR) 0.91; PROTHROMBIN TIME 12.8 SEC (11.4-15.4)
[2018-09-07 15:16] LABS: PARTIAL THROMBOPLASTIN TIME 29.8 SEC (23.5-35.8)
--- NOTE | 2018-09-07 15:58 | RADIOLOGY REPORT (SQ) ---
EXAM DESCRIPTION: CTA CHEST COMPLETED DATE/TIME: 09/07/2018 3:25 pm REASON FOR STUDY: DVT rt leg COMPARISON: None. TECHNIQUE: CT scan of the chest performed using helical scanning technique with dynamic intravenous contrast injection. Images reviewed with lung, soft tissue and bone windows. Reconstructed coronal and sagittal MPR images reviewed. Additional 3 dimensional post-processing performed to develop Maximal Intensity Projection images (ID P). All images stored on PACS. All CT scanners at this facility use dose modulation, iterative reconstruction, and/or weight based d osing when appropriate to reduce radiation dose to as low as reasonably achievable (ALARA). [facility]: Dose Right [facility]: CareDose [facility]: Dose Right [facility]: Teradose 4D [facility]: [employer] CONTRAST TYPE AND DOSE: contrast/concentration: Isovue 350.00 mg/ml; Total Contrast Delivered: 80.0 ml; Total Saline Delivered: 90.0 ml Contrast bolus optimized for the pulmonary arteries. Not diagnostic for the aorta. RENAL FUNCTION: Creatinine- 0.82 BUN=21 RADIATION DOSE: CT Rad equipment meets quality standard of care and radiation dose reduction techniq ues were employed. CTDIvol: 24.2 - 24.8 mGy. DLP: 970 mGy-cm. . LIMITATIONS: None. FINDINGS: LUNGS AND PLEURA: Small subcentimeter pulmonary nodules with some of the largest measurin g 4-5 mm. No acute pulmonary consolidation. Scattered areas of scarring or atelectasis in the lower lobes. No pneumothorax or pleural effusion. The central airways are clear. AORTA AND GREAT VESSELS: No aneurysm. Contrast bolus not optimized for the aorta. HEART: No pericardial effusion. Mild coronary artery calcifications. PULMONARY ARTERIES: Fair opacification of the pulmonary vasculature, may be related to the IV contra st tracking bolus technique. No emboli visualized in the main pulmonary arteries or the segmental br anches. HILAR AND MEDIASTINAL STRUCTURES: No identified masses or abnormal nodes. HARDWARE: None in the chest. UPPER ABDOMEN: Bilateral nonobstructing renal calculi, stable finding since the CT abdomen study bere ed 04/22/2016. Ate. Prior cholecystectomy. Limited exam. THYROID AND OTHER SOFT TISSUES: No masses. No adenopathy. BONES: No acute or significant finding. 3D MIPS: Confirm above findings. OTHER: No other significant finding. IMPRESSION: 1. Fair opacification of the pulmonary vasculature, maybe related to the IV contrast tr acking bolus technique. No evidence of acute pulmonary emboli. 2. Small subcentimeter pulmonary nodules. A follow-up CT chest examination is suggested in three to six months. 3. Bilateral nephrolithiasis, stable finding since CT examination dated 04/22/2016. 4. Prior cholecystectomy. COMMENT: Quality ID # [id number]: Final reports with documentation of one or more dose reduction techniques (e.g., Automated exposure control, adjustment of the mA and/or kV according to patient size, use of iterative reconstruction technique) TECHNICAL DOCUMENTATION: JOB ID: [id number] [employer]- All Rights Reserved Reading location - IP/workstation name: [email or web address]
[2018-09-07] MEDS ORDERED: APIXABAN 5 MG TABLET PO ONE (16:45)
[2018-09-07 16:58] VITALS: BP 134/89
--- NOTE | 2018-09-07 17:30 | XCELERA REPORT ---
[address] [address] Lower Extremity Venous Evaluation Procedure: Color flow and duplex imaging of the veins of the left lower extremity as well as the right Common Femoral vein. Right Sided Venous Evaluation The right common femoral vein is fully compressible. Spontaneous and phasic flow is present in the right common femoral vein. Left Sided Venous Evaluation Abnormal vessel filling, echogenic, enlarged, partial compression in the Femoral vein. Echogenic content in the Greater Saphenous vein from below knee to ankle. Otherwise normal findings down to the infrageniculate veins. Critical Findings Called in to MAC Frank at about 1500. Interpretation Summary Sub acute Deep venous thrombosis in the left Femoral vein. Also Superficial phlebitis in the left Greater Saphenous vein. Name: NAINA LAY Age: 62 yrs Gender: Male : 1955 Patient Status: Emergency Patient Location: ER Study Date: 09/07/2018 02:20 PM Reason For Study: LLE Ordering Physician: RUBINA ANGULO Performed By: Kennedy Joseph : RUBINA ANGULO > Maico Leong
== END 2018-09-07 17:05 | disposition home or self-care (01) ==
LOC: ER 13:15
DX: I82.412 Acute embolism and thrombosis of left femoral vein (principal); T45.516A Underdosing of anticoagulants, initial encounter; Z91.120 Patient's intentional underdosing of medication regimen due to financial hardship; Z91.14 Patient's other noncompliance with medication regimen; Z79.82 Long term (current) use of aspirin; Z91.040 Latex allergy status; Z88.0 Allergy status to penicillin
CPT/HCPCS: 36415; 71046; 71275; 80053; 85025; 85610; 85730; 93971; 99284

== ENCOUNTER → 2018-09-09 | Outpatient (CLI) | payer OTHER ==
[2018-09-09 16:48] LABS: ABSOLUTE BASOPHILS # (AUTO) 0.1 10^3/uL (0.0-0.2); ABSOLUTE EOSINOPHILS # (AUTO) 0.3 10^3/uL (0.0-0.6); ABSOLUTE LYMPHOCYTES (AUTO) 2.5 10^3/uL (0.5-4.7); ABSOLUTE MONOCYTES (AUTO) 0.6 10^3/uL (0.1-1.4); ABSOLUTE NEUT (AUTO) 2.4 10^3/uL (1.7-8.2); BASOPHILS % (AUTO) 1.1 % (0-2); EOSINOPHILS % (AUTO) 4.6 % (0-6); HEMATOCRIT 43.5 % (37.9-51.0); LYMPHOCYTES % (AUTO) 43.2 % (13-45); MEAN CORPUSCULAR HEMOGLOBIN 30.5 pg (27.0-33.4); MEAN CORPUSCULAR HGB CONC 34.4 g/dL (32.0-36.0); MEAN CORPUSCULAR VOLUME 89 fl (80-97); MONOCYTES % (AUTO) 9.8 % (3-13); PLATELET COUNT 192 10^3/uL (150-450); RED CELL DISTRIBUTION WIDTH 13.7 % (11.5-14.0); SEGMENTED NEUTROPHILS % (AUTO) 41.3 % (42-78); TOTAL CELLS COUNTED % (AUTO) 100 %; WHITE BLOOD COUNT 5.8 10^3/uL (4.0-10.5)
[2018-09-09 17:14] LABS: ALANINE AMINOTRANSFERASE 27 U/L (21-72); ALBUMIN 4.1 g/dL (3.5-5.0); ALKALINE PHOSPHATASE 53 U/L (38-126); ANION GAP 9 (5-19); ASPARTATE AMINO TRANSFERASE 28 U/L (17-59); BILIRUBIN,DIRECT 0.3 mg/dL (0.0-0.4); BILIRUBIN,TOTAL 0.9 mg/dL (0.2-1.3); BLOOD UREA NITROGEN 18 mg/dL (7-20); CALCIUM 9.4 mg/dL (8.4-10.2); CARBON DIOXIDE 24 mmol/L (22-30); CHLORIDE 106 mmol/L (98-107); CHOLESTEROL 208.89 mg/dL (0-200); GLUCOSE 87 mg/dL (75-110); POTASSIUM 4.6 mmol/L (3.6-5.0); SODIUM 138.5 mmol/L (137-145); TOTAL PROTEIN 7.6 g/dL (6.3-8.2); TRIGLYCERIDES 80 mg/dL (<150); URIC ACID 3.5 mg/dL (3.5-8.5)
[2018-09-09 17:24] LABS: DIRECT LDL 110 mg/dL (<100)
== END ==
LOC: OD 14:50
DX: I82.409 Acute embolism and thrombosis of unspecified deep veins of unspecified lower extremity (principal); M10.9 Gout, unspecified
CPT/HCPCS: 36415; 80053; 80061; 84550; 85025

== ENCOUNTER 2019-01-04 14:44 | Emergency (ER) | payer SELFPAY ==
--- NOTE | 2019-01-04 16:50 | ER Document Report ---
HPI - HPI Time Seen by Provider: 01/04/19 16:35 Pain Level: 2 Context: Patient is a 63-year-old male who presents to the emergency department with a chief complaint of a rash. Patient states 1 week ago he did start using a new lavender lotion around the time that he developed a rash to the upper extremities. Patient states that 3 days ago he stopped using the lotion but the rash continues to spread to his torso and now his left hip. Patient states that it does itch. Patient states he has not had any fever. Patient denies any other changes such as new detergent, new soaps or new foods. Patient states he has used some cream that a friend gave him that was and some calamine lotion which did help with the itching slightly. Patient denies any respiratory or difficulty breathing. Patient denies rash or swelling to the face. - CONSTITUTIONAL Constitutional: DENIES: Fever, Chills Past Medical History - Social History Smoking Status: Unknown if Ever Smoked Family History: Reviewed & Not Pertinent Patient has suicidal ideation: No Patient has homicidal ideation: No - Past Medical History Cardiac Medical History: Reports: Hx DVT, Hx Heart Murmur Pulmonary Medical History: Denies: Hx Tuberculosis Neurological Medical History: Denies: Hx Seizures Renal/ Medical History: Denies: Hx Peritoneal Dialysis Musculoskeletal Medical History: Reports Hx Arthritis, Reports Hx Gout Past Surgical History: Reports: Hx Abdominal Surgery - hernia, Hx Cholecystectomy, Hx Herniorrhaphy - umbilical, Hx Orthopedic Surgery - left ankle surg. Denies: Hx Pacemaker - Immunizations Immunizations up to date: Yes Hx Diphtheria, Pertussis, Tetanus Vaccination: Yes Vertical Provider Document - CONSTITUTIONAL Agree With Documented VS: Yes Exam Limitations: No Limitations General Appearance: No Apparent Distress - INFECTION CONTROL TRAVEL OUTSIDE OF THE [place] IN LAST 30 DAYS: No - HEENT HEENT: Atraumatic, Normocephalic, PERRLA - NECK Neck: Normal Inspection - RESPIRATORY Respiratory: Breath Sounds Normal, No Respiratory Distress - CARDIOVASCULAR Cardiovascular: Regular Rate, Regular Rhythm - GI/ABDOMEN Gastrointestinal: Abdomen Soft, Abdomen Non-Tender, Normal Bowel Sounds - BACK Back: Normal Inspection - MUSCULOSKELETAL/EXTREMETIES Musculoskeletal/Extremeties: Non-Tender - NEURO Level of Consciousness: Awake, Alert, Appropriate - DERM Integumentary: Rash Notes: Patient has a scattered maculopapular rash to the bilateral arms and torso. There is no surrounding cellulitis or signs of infection. Some areas do appear to be dry and crusted. Course - Re-evaluation Re-evalutation: 01/04/19 17:25 Patient symptoms are consistent with a possible contact dermatitis as his symptoms did start when he used a new lotion. I did inform the patient to take Benadryl as needed for itching, may use calamine lotion if this helps and we will give him a steroid injection prior to discharge. Patient is agreement with this plan. I did inform the patient to follow up with his primary care physician at the [facility] or to return to the emergency department for worsening rash. - Vital Signs Vital signs: Temp Pulse Resp BP Pulse Ox 98.1 F 84 18 142/94 H 95 01/04/19 14:56 01/04/19 14:56 01/04/19 14:56 01/04/19 14:56 01/04/19 14:56 Discharge - Discharge Clinical Impression: Rash, Dermatitis Condition: Stable Disposition: HOME, SELF-CARE Instructions: Corticosteroid Medication (OM) Additional Instructions: Today you were seen in the emergency department for a rash. Your symptoms are consistent with a contact dermatitis measures rash did begin when starting to use a new lotion. Ultimately I do not know what is causing the rash. We will treat you for your symptoms and give you a shot of Decadron which is a steroid. Continue use Benadryl as needed for itching, do not scratch the rash as it can get infected. You may use calamine lotion if this seems to soothe the rash. Please return the emergency department for any worsening signs or symptoms, facial swelling or rash to the face. Forms: Return to Work Referrals: [facility] [NO LOCAL MD] - Follow up as needed
[2019-01-04] MEDS ORDERED: DEXAMETHASONE SOD PHOS INJ 10 MG/1 ML VIAL IM ONE (17:23)
[2019-01-04 18:03] VITALS: BP 139/80
== END 2019-01-04 18:04 | disposition home or self-care (01) ==
LOC: ER 14:44
DX: L30.9 Dermatitis, unspecified (principal); R21 Rash and other nonspecific skin eruption; Z86.718 Personal history of other venous thrombosis and embolism; Z90.49 Acquired absence of other specified parts of digestive tract
CPT/HCPCS: 99282; J1100